=== PATIENT | female | born 1975 | race Caucasian/White ===

== ENCOUNTER 2017-03-14 11:31 | Emergency (ER) | payer OTHER ==
[~2017-03-14] VITALS: Ht 170.2 cm; Wt 107.0 kg
[~2017-03-14 11:31] MED LIST: CYCL-1 PO
[2017-03-14] MEDS ORDERED: LORazepam 2 mg/ml vial IM ONE (12:00)
[2017-03-14] MEDS ORDERED: ondansetron 4mg rapidly disintigrating tab PO ONE (12:00)
[2017-03-14] MEDS ORDERED: HYDROmorphone 1 mg/ml syringe IM ONE (12:00)
[2017-03-14] MEDS ORDERED: HYDROmorphone 2mg/ml vial IM ONE (12:05)
[2017-03-14] MEDS ORDERED: morphine 5 MG/ML injection IM ONE (13:10)
[2017-03-14] MEDS ORDERED: ketorolac trometh inj. 60 MG/2 ML VIAL IM ONE (13:10)
[2017-03-14] MEDS ORDERED: TRAM50TA2 PO (15:15)
[2017-03-14 15:52] VITALS: BP 108/53
== END 2017-03-14 15:54 | disposition home or self-care (01) ==
LOC: ER 11:31
DX: M54.5 Low back pain (principal); F17.200 Nicotine dependence, unspecified, uncomplicated; Z88.5 Allergy status to narcotic agent
CPT/HCPCS: 96372; 99284; J1170; J1885; J2060